=== PATIENT | male | born 2000 | race Caucasian/White ===

== ENCOUNTER → 2020-03-10 | Outpatient (CLI) | payer BC ==
--- NOTE | 2020-03-11 09:42 | Diagnostic Imaging Report ---
Exam: Testicular ultrasound. Clinical History: Spermatocele Findings: Sonographic evaluation of the testicles. Both testes are normal in echogenicity and size without intratesticular mass. Normal symmetric bilateral blood flow. No evidence of testicular torsion. Right: The right testicle measures 4.8 x 2.3 x 3.2 cm and appears unremarkable. The right epididymis measures 0.9 x 0.8 x 1.0 cm and contains a 0.2 cm spermatocele. No hydrocele or varicocele. Left: The left testicle measures 4.6 x 2.3 x 2.7 cm and appears unremarkable. The left epididymis measures 1.4 x 1.6 x 1.8 cm and contains a 1.6 x 1.0 x 1.5 cm spermatocele. No hydrocele or varicocele. Impression: No testicular torsion or intratesticular mass. Bilateral spermatoceles as above. Signed by: Hadley Reis MD on 03/11/2020 9:34 AM
== END ==
LOC: US 15:48
PROVIDERS: ATTEND Urology
DX: N43.40 Spermatocele of epididymis, unspecified (principal)
CPT/HCPCS: 76870; 93976